=== PATIENT | male | born 1960 | race Hispanic/Latino ===

== ENCOUNTER 2016-12-25 15:59 | Emergency (ER) | payer OTHER ==
[2016-12-25 16:09] VITALS: BP 150/53; PULSE 95; RESP 20; TEMP 98.2; O2SAT 97
--- NOTE | 2016-12-25 16:59 | C.PDOC ---
History Of Present Illness 56 y/o male presents to ED with complaints of right knee pain for 9 days after twisting it at work. Patient reports pain to be worse with movement. Denies direct trauma, change in sensation, fever or any other complaints at this time. Time Seen by Provider: 12/25/16 16:16 Chief Complaint (Nursing): Lower Extremity Problem/Injury History Per: Patient History/Exam Limitations: no limitations Onset/Duration Of Symptoms: Days Current Symptoms Are (Timing): Still Present - Knee Description Of Injury: Twisted Past Medical History Reviewed: Historical Data, Nursing Documentation, Vital Signs Vital Signs: Last Vital Signs Temp 98.2 F 12/25/16 16:09 Pulse 95 H 12/25/16 16:09 Resp 20 12/25/16 16:09 BP 150/53 L 12/25/16 16:09 Pulse Ox 97 12/25/16 17:31 - Medical History PMH: Anxiety, HTN, Hypercholesterolemia, Hyperlipidemia Other PMH: Narcotics recovery Surgical History: No Surg Hx Family History: States: No Known Family Hx - Social History Hx Tobacco Use: Yes Hx Alcohol Use: Yes Hx Substance Use: No - Immunization History Hx Tetanus Toxoid Vaccination: No Hx Influenza Vaccination: Yes Hx Pneumococcal Vaccination: No Review Of Systems Constitutional: Negative for: Fever Eyes: Negative for: Vision Change Musculoskeletal: Positive for: Leg Pain Skin: Negative for: Rash Neurological: Negative for: Weakness, Numbness Physical Exam - Physical Exam Appears: Non-toxic, No Acute Distress Skin: Normal Color, Warm, Dry, No Rash Head: Atraumatic, Normacephalic Eye(s): bilateral: Normal Inspection, EOMI Nose: Normal Oral Mucosa: Moist Neck: Normal ROM, Supple Chest: Symmetrical Respiratory: No Accessory Muscle Use Extremity: No Normal ROM, Tenderness (right anterior tenderness), No Calf Tenderness, Capillary Refill (<2 seconds), No Deformity, No Swelling Extremity: Bilateral: Normal ROM Pulses: Left Dorsalis Pedis: Normal, Right Dorsalis Pedis: Normal Neurological/Psych: Oriented x3, Normal Motor, Normal Sensation ED Course And Treatment O2 Sat by Pulse Oximetry: 97 (RA) - Other Rad Knee XR X-Ray: Interpreted by Me, Viewed By Me Interpretation: No fx or dislocation Progress Note: knee brace applied by schedule hanger. Patient advised to follow up with ortho in 1-2 days. Disposition - Disposition Referrals: Deann Swan MD [Staff Provider] - Disposition: HOME/ ROUTINE Disposition Time: 17:29 Condition: STABLE Additional Instructions: Follow up with referral physician in 1-2 days without fail for further evaluation. Take medications as prescribed. Return to the emergency department at any time if symptoms persist or worsen. Prescriptions: Naproxen [Naprosyn] 1 tab PO BID PRN #20 tab PRN Reason: Pain Instructions: Knee Pain (ED) Forms: [employer] (Pashto) - Clinical Impression Clinical Impression: Knee pain - PA / [employer] / Resident Statement MD/DO has reviewed & agrees with the documentation as recorded. - Scribe Statement The provider has reviewed the documentation as recorded by the Renee Nur All medical record entries made by the Renee were at my direction and personally dictated by me. I have reviewed the chart and agree that the record accurately reflects my personal performance of the history, physical exam, medical decision making, and the department course for this patient. I have also personally directed, reviewed, and agree with the discharge instructions and disposition.
--- NOTE | 2016-12-26 11:36 | RAD ---
PROCEDURE: Right Knee Radiographs. HISTORY: pain COMPARISON: None. FINDINGS: BONES: . No fracture. Trace spurring medial tibial plateau possible JOINTS: Normal. No osteoarthritis. JOINT EFFUSION: None. OTHER FINDINGS: None. IMPRESSION: No fracture or lytic lesion.
== END 2016-12-25 17:47 | disposition home or self-care (01) ==
LOC: C.ER 15:59
DX: M25.561 Pain in right knee (principal)

== ENCOUNTER 2017-10-29 14:06 | Emergency (ER) | payer OTHER ==
[2017-10-29 14:18] VITALS: BMI 37.9
[2017-10-29 14:19] VITALS: TEMP 98.3
--- NOTE | 2017-10-29 14:52 | C.PDOC ---
History Of Present Illness 57 year old male with PMHx of presents to the ED c/o left hand pain and swelling for the past 3 days. Patient reports he noticed his hand has been getting more swollen. 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 Patient states his is only taking is blood pressure medications. Patient denies injury, fall, trauma, weakness, numbness. Time Seen by Provider: 10/29/17 14:21 Chief Complaint (Nursing): Finger,Hand,&Wrist History Per: Patient History/Exam Limitations: no limitations Onset/Duration Of Symptoms: Days (3) Current Symptoms Are (Timing): Still Present Quality: "Pain" Recent travel outside of the [place]: No Additional History Per: Patient Past Medical History Reviewed: Historical Data, Nursing Documentation, Vital Signs Vital Signs: Last Vital Signs Temp 98.3 F 10/29/17 14:18 Pulse 91 H 10/29/17 14:18 Resp 18 10/29/17 14:18 BP 121/84 10/29/17 14:18 Pulse Ox 95 10/29/17 15:01 - Medical History PMH: Anxiety, HTN, Hypercholesterolemia, Hyperlipidemia Surgical History: No Surg Hx Family History: States: Unknown Family Hx - Social History Hx Tobacco Use: Yes Hx Alcohol Use: Yes Hx Substance Use: No - Immunization History Hx Tetanus Toxoid Vaccination: No Hx Influenza Vaccination: Yes Hx Pneumococcal Vaccination: No Review Of Systems Constitutional: Negative for: Fever, Chills Cardiovascular: Negative for: Chest Pain, Palpitations Respiratory: Negative for: Cough, Shortness of Breath Musculoskeletal: Positive for: Hand Pain Skin: Negative for: Rash Neurological: Negative for: Weakness, Numbness Physical Exam - Physical Exam Appears: Non-toxic, No Acute Distress Skin: Normal Color, Warm, Dry, No Rash Head: Atraumatic, Normacephalic Eye(s): bilateral: Normal Inspection Neck: Normal ROM, Supple Chest: Symmetrical Cardiovascular: Rhythm Regular Respiratory: Normal Breath Sounds, No Rales, No Rhonchi, No Wheezing Extremity: Normal ROM, No Tenderness, Capillary Refill (< 2 seconds), Swelling ( left hand over 4th and 5th metacarpal, non pitting) Pulses: Left Radial: Normal, Right Radial: Normal Neurological/Psych: Oriented x3, Normal Speech, Normal Motor, Normal Sensation Gait: Steady ED Course And Treatment O2 Sat by Pulse Oximetry: 95 (On RA) Pulse Ox Interpretation: Normal - Other Rad L HAND X-Ray: Interpreted by Me (NEG) Medical Decision Making Medical Decision Making: Plan: * Left hand X-Ray Disposition Counseled Patient/Family Regarding: Studies Performed, Diagnosis, Need For Followup, Rx Given - Disposition Referrals: YOUR,PMD [Other] Disposition: HOME/ ROUTINE Disposition Time: 16:05 Condition: GOOD Additional Instructions: WEAR SPLINT X 1 WEEK. TAKE MOTRIN DIRECTED NEEDED FOR PAIN, SWELLING. FOLLOW UP PMD. Prescriptions: Naproxen [Naprosyn] 1 tab PO BID PRN #25 tab PRN Reason: Pain Forms: [facility] [employer] (Andorran), General Discharge Instructions - Clinical Impression Clinical Impression: Hand swelling - Scribe Statement The provider has reviewed the documentation as recorded by the Scribe Panfilo Guidry All medical record entries made by the Scribe were at my direction and personally dictated by me. I have reviewed the chart and agree that the record accurately reflects my personal performance of the history, physical exam, medical decision making, and the department course for this patient. I have also personally directed, reviewed, and agree with the discharge instructions and disposition. Orthopedic Care Application Of:: Volar Splint
[2017-10-29 16:11] VITALS: BP 128/69; PULSE 78; RESP 16; O2SAT 98
--- NOTE | 2017-10-29 16:33 | RAD ---
PROCEDURE: Left Hand Radiographs. HISTORY: SWELLING COMPARISON: None. FINDINGS: BONES: Normal. No fracture. JOINTS: Normal. No osteoarthritic changes. SOFT TISSUES: Normal. OTHER FINDINGS: None. IMPRESSION: Normal left hand radiographs.
== END 2017-10-29 16:18 | disposition home or self-care (01) ==
LOC: C.ER 14:06
DX: M79.89 Other specified soft tissue disorders (principal)
CPT/HCPCS: 29125; 73130; 99284; J8540